=== PATIENT | female | born 1985 | race African-American/Black ===

== ENCOUNTER 2020-07-06 13:16 | Outpatient (CLI) | payer OTHER, SELFPAY ==
[~2020-07-06] VITALS: Ht 172.7 cm; Wt 72.2 kg
[2020-07-06] MEDS ORDERED: PRENTAB9 PO (13:41)
[2020-07-06] MEDS ORDERED: ZOLO50TA PO (13:41)
[2020-07-06 13:44] VITALS: BP 113/62
[2020-07-06] MEDS ORDERED: FLUCONAZOLE 100 MG TAB PO ONE (13:45)
[2020-07-06] MEDS ORDERED: BETAMETHASONE SOLUSPAN 6MG/ML 5ML VIAL (J0702 PER 3MG) IM SCH (16:15)
[2020-07-06] MEDS ORDERED: PENICILLIN G POTASSIUM IV 5 MU in D5W MINI-BAG PLUS 100 ML IV STA (16:22)
[2020-07-06 16:23] VITALS: BP 121/64
--- NOTE | 2020-07-06 16:33 | IPNPDOC ---
Obstetrical Progress Note Date of Service Jul 06, 2020 Subjective 35yo lorna [id number] @33+0 presenting from clinic for prolonged monitoring after spontaneous deceleration on clinic NST and finding of 350/-3 cervical dilation and vaginal candidiasis. Objective Vital Signs Date Time Temp Pulse Resp B/P (MAP) Pulse Ox O2 Delivery O2 Flow Rate FiO2 07/06/20 13:44 99.0 86 18 113/62 (79) Assessment Heart Rate (FHR): 150 Variability: Moderate Accelerations: Positive Decelerations: None (no decels monitored on triage observation) Tocometer Contractions: Yes Frequency: irregular Duration: less than 60 seconds Strength: palpated as mild, resting tone palp/soft Sterile Vaginal Examination Dilation: 3 cm Effacement (%): 50% Station: -3 Cervical Consistency: Soft Cervical Position: Posterior Postion/Presentation: Cephalic presentation Assessment and Plan Age: 35 : 4 Term: 2 Pre-term: 0 Abortions: 1 Livin Status: Reassuring Group B Streptococcus: Positive (by urine) Additional Comments Consulted with Dr. Boyer for plan of care with betamethasone for lung maturity. Dr. Boyer recommended that patient remain on observation for 24 hours for completion of steroids and monitoring of contractions. Discussed plan of care and signs of labor. Pt consented to plan. 12 Betamethasone im ordered q24hr x2 Care transferred to Dr. Boyer at change of shift. SERGE BARBOUR CNM Jul 06, 2020 16:33
[2020-07-06] MEDS ORDERED: SERTRALINE HCL 50 MG TAB PO SCH (17:00)
[2020-07-06 19:11] VITALS: BP 120/70
[2020-07-06] MEDS: PENICILLIN G POTASSIUM IV 2.5 MU in IV 1 EA IV SCH (21:10)
[2020-07-07 00:40] VITALS: BP 117/65
[2020-07-07 00:42] VITALS: BP 117/65
[2020-07-07] MEDS: PENICILLIN G POTASSIUM IV 2.5 MU in IV 1 EA IV SCH ×2 (00:51→05:06)
--- NOTE | 2020-07-07 07:35 | IPNPDOC ---
Text Note Date of Service The patient was seen on 07/07/20. NOTE Went to evaluate Lizeth this morning. She reports feeling well and denies experiencing any contractions. She also denies any bleeding or leakage of fluid. She endorses movement. Chaperoned by Leandro Cervix: unchanged at 3/50/-3 FHR has been Cat I throughout her stay. Plan to discharge home today. She will stop in the office this afternoon and receive her 2nd dose of BTMZ. We discussed strict return precautions. All questions answered. Facundo Boyer DO VS,Ruel, I+O VS, Ruel, I+O Vital Signs Date Time Temp Pulse Resp B/P (MAP) Pulse Ox O2 Delivery O2 Flow Rate FiO2 07/07/20 06:31 17 07/07/20 00:42 82 117/65 (82) 07/07/20 00:40 99.5 I&O- Last 24 Hours up to 6 AM 07/07/20 06:00 Intake Total 100 ml Balance 100 ml FACUNDO BOYER DO Jul 07, 2020 07:35
== END 2020-07-07 08:10 | disposition home or self-care (01) ==
LOC: M LDO 13:16
PROVIDERS: ATTEND Registered Nurse
DX: O26.893 Other specified pregnancy related conditions, third trimester (principal); Z3A.33 33 weeks gestation of pregnancy; B37.3 Candidiasis of vulva and vagina
CPT/HCPCS: 59025; 96372; 96374; G0378; G0463; J0702

== ENCOUNTER 2020-08-14 11:29 | Inpatient (IN) | payer OTHER ==
[2020-08-14] VITALS (7 sets, daily range): BP systolic 114–141; BP diastolic 60–87
[~2020-08-14] VITALS: Ht 172.7 cm; Wt 78.0 kg
[2020-08-14] MEDS: PRENATAL VITAMINS CHEWABLE TABLET PO SCH (09:00)
[~2020-08-14 11:29] MED LIST: PRENTAB9 PO; ZOLO50TA PO
[2020-08-14] MEDS ORDERED: OXYTOCIN DRIP 30 UNITS in IV 1 EA IV SCH (12:20)
[2020-08-14] MEDS ORDERED: IBUPROFEN 800 MG TAB PO PRN (12:30)
[2020-08-14] MEDS ORDERED: BENZOCAINE 20% HEMORRHOIDAL OINTMENT 28GM TUBE TOP PRN (12:30)
--- NOTE | 2020-08-14 12:38 | DNPDOC ---
[facility] Delivery Note Delivery Note DATE OF DELIVERY: 08/14/20 PREDELIVERY DIAGNOSIS: 38-4/7 weeks' gestation and labor. POST DELIVERY DIAGNOSIS: Delivered. PROCEDURE: Spontaneous vaginal delivery [employer]IC: Brandon Christianson ANESTHESIA: none. ESTIMATED BLOOD LOSS: 150 mL. FINDINGS: 7 pound 9 ounce (3420g) female , Score 9/9, no nuchal cord. DELIVERY SUMMARY: Patient is a 35-year-old 3 now para 3003 who was admitted to labor and delivery fully dilated and precipitously delivered within 30 min of arrival. Patient progressed to C/C/+2 and with good maternal effort delivered a viable female infant. The infants head delivered OA and the head was allowed to spontaneously restitute LOBO. No nuchal cord upon delivery of the head.Right anterior shoulder delivered with gentle downward traction followed by posterior shoulder and corpus without difficulty. Normal 3-vessel cord clamped x 2 and cut by FOB after 1min of delayed cord clamping. Spontaneous cry noted. Infant placed on maternal abdomen for [id number]. Cord blood obtained. Placenta delivered spontaneously and inspection of the placenta demonstrated that it was intact. The cord insertion appeared normal. The uterus was cleared of all clots and debris. Fundal massage until firm. 30 units of Pitocin administered per protocol and the patient required no additional uterotonics. Inspection of cervix, perineum, and vaginal wall revealed no tears with good hemostasis. Repeat uterine examination noted uterine tone to be adequate and firm. Mom and infant stayed in L&D in hemodynamic stable condition upon my departure. Sponge, lap and needle count correct x 2. YANETH BROWNE MD Aug 14, 2020 12:29
--- NOTE | 2020-08-14 12:44 | HPEPDOC ---
Obstetrical History & Physical General Date of Admission Aug 14, 2020 at 11:29 History of Present Illness 35 YO AT 38+4 Who presented to L&D fullly dilated and had a precipitous delivery within 30 min of arrival. she is GBS pos noted after she had delivered, RH positive. she had an uncomplicated delivery, see her delivery note for more details. Past Medical History Past Medical History Medical History OCD- takes 50mg zoloft Social History Psychosocial History: Other (OCD) * Smoker: non-smoker Alcohol: Denies Abuse Violence Screening Have you been hit/kicked/slapp: No Have you been sexually assault: No Physical Examination Physical Examination GENERAL: Alert and oriented times three. BREAST: . ABDOMEN: Gravid and non-tender to touch. FETUS: Is vertex DELIVERED Laboratory Data 24H LABS Laboratory Tests 2 08/14/20 11:35: Assessment/Plan Assessment 35 YO AT 38+4 Who presented to L&D fullly dilated and had a precipitous delivery within 30 min of arrival. she is GBS pos noted after she had delivered, RH positive. she had an uncomplicated delivery, see her delivery note for more details. Plan Transfer to [facility] for post op recovery. YANETH BROWNE MD Aug 14, 2020 12:44
[2020-08-14] MEDS ORDERED: LR 1,000 ML IV ONE (13:00)
[2020-08-14] MEDS ORDERED: ZOLO50TA PO (13:18)
[2020-08-14] MEDS ORDERED: FERR325T3 PO (13:19)
[2020-08-14] MEDS ORDERED: PRENTAB9 PO (13:19)
[2020-08-14] MEDS ORDERED: VALA500T5 PO (13:45)
[2020-08-14] MEDS ORDERED: SERTRALINE HCL 50 MG TAB PO ONE (14:00)
[2020-08-14] MEDS: ACETAMINOPHEN 500 MG TAB PO PRN (20:08)
[2020-08-14] MEDS: DOCUSATE SODIUM 100MG CAPSULE PO SCH (21:29)
--- NOTE | 2020-08-15 05:42 | IPNPDOC ---
Progress Note Date of Service: Aug 15, 2020 Progress Note SUBJECT: Lizeth is a 35-year-old 4 now Para 3013 status post uncomplicated spontaneous vaginal delivery at 38-3/7 weeks of a 7 pound 9 ounce (3420g) female , Score 9/9, no nuchal cord, doing well day # 1. She has been ambulating, voiding spontaneously without issue and tolerating regular diet. Breast feeding without issue. Reports lochia is minimal Patient is ambulating well. OBJECTIVE: VITAL SIGNS: Within normal limits, afebrile. Alert and oriented times three. normal work of breathing. Heart rate: Regular rate . Abdomen: Fundus firm at U-2. . ASSESSMENT: Lizeth is a 35-year-old 4 now Para 3013 status post uncomplicated spontaneous vaginal delivery at 38-3/7 weeks of a 7 pound 9 ounce (3420g) female , Score 9/9, no nuchal cord, doing well day # 1. Vitals within normal limits, afebrile, hemodynamically stable with no evidence of infection. PLAN: 1. Discharge to home tomorrow. 2. Tylenol and Motrin for pain. 3. Encourage breast feeding and ambulation. 4. undecided for contraception- discussed risks of close interval . 5. Routine PP visit in 6 weeks in clinic. 6. Discussed return precautions at length. VS, I&O, 24H, Fishbone Vital Signs/I&O Vital Signs Date Time Temp Pulse Resp B/P (MAP) Pulse Ox O2 Delivery O2 Flow Rate FiO2 08/14/20 17:57 99.0 92 18 114/75 (88) 100 I&O- Last 24 Hours up to 6 AM 08/15/20 06:00 Output Total 150 ml Balance -150 ml Laboratory Data 24H LABS Laboratory Tests 2 08/14/20 11:35: Hepatitis B Surface Antigen NEGATIVEL 08/14/20 14:22: Serology Scanned Report Hepatitis B Testing YANETH BROWNE MD Aug 15, 2020 05:42
[2020-08-15 06:17] VITALS: BP 135/72
[2020-08-15 09:08] LABS: HEMATOCRIT 37.8 % (36.0-47.0); HEMOGLOBIN 12.9 g/dl (12.0-15.5); MEAN CORPUSCULAR HEMOGLOBIN 32.6 pg (27.0-33.0); MEAN CORPUSCULAR HGB CONC 34.1 g/dl (32.0-36.5); MEAN CORPUSCULAR VOLUME 95.5 fl (80.0-96.0); PLATELET COUNT, AUTOMATED 219 10^3/uL (150-450); RED BLOOD COUNT 3.96 10^6/uL (4.00-5.40); WHITE BLOOD COUNT 7.4 10^3/uL (4.0-10.0)
[2020-08-15] MEDS: DOCUSATE SODIUM 100MG CAPSULE PO SCH ×2 (09:17→21:04)
[2020-08-15] MEDS: PRENATAL VITAMINS CHEWABLE TABLET PO SCH (09:17)
[2020-08-15] MEDS: SERTRALINE HCL 50 MG TAB PO SCH (09:18)
[2020-08-15 17:40] VITALS: BP 126/68
[2020-08-16 06:00] VITALS: BP 132/75
--- NOTE | 2020-08-16 08:40 | IPNPDOC ---
Progress Note Date of Service: Aug 16, 2020 Day#: 2 Progress Note SUBJECT: Lizeth is a 35yo G3 now P3 s/p doing well day # 2. She has been ambulating, voiding spontaneously without issue and tolerating regular diet. Breast feeding without issue. She notes that her lochia has decreased and is light in nature this morning. Reports pain controlled. OBJECTIVE: VITAL SIGNS: Within normal limits, afebrile. Alert and oriented times three. Abdomen: Fundus firm at U-1. Soft, NTTP. ASSESSMENT: Lizeth is a 35yo G3 now P3 s/p doing well day # 2. Vitals within normal limits, afebrile, hemodynamically stable with no evidence of infection. PLAN: 1. Discharge to home today. 2. Continue current pain mgmt. 3. Encourage breast feeding and ambulation. 4. Encourage regular diet as tolerated. 5. Routine PP visit in 6 weeks in clinic. 6. Discussed return precautions at length VS, I&O, 24H, Fishbone Vital Signs/I&O Vital Signs Date Time Temp Pulse Resp B/P (MAP) Pulse Ox O2 Delivery O2 Flow Rate FiO2 08/16/20 06:00 98.1 79 18 132/75 (94) 98 Room Air ROSALINDA VILLASENOR DO Aug 16, 2020 08:40
[2020-08-16] MEDS: SERTRALINE HCL 50 MG TAB PO SCH (09:08)
[2020-08-16] MEDS: DOCUSATE SODIUM 100MG CAPSULE PO SCH (09:08)
[2020-08-16] MEDS: PRENATAL VITAMINS CHEWABLE TABLET PO SCH (09:08)
[2020-08-16] MEDS: ACETAMINOPHEN 500 MG TAB PO PRN (09:19)
== END 2020-08-16 15:55 | disposition home or self-care (01) | DRG 807 ==
LOC: M LDI 11:29 → MERGE 11:29 → M OBS 16:26
PROVIDERS: ADMIT Obstetrics & Gynecology; ATTEND Obstetrics & Gynecology
PROC: 10E0XZZ Delivery of Products of Conception, External Approach (ICD-10-PCS; principal; 2020-08-14)
DX: O62.3 Precipitate labor (principal); Z37.0 Single live birth; Z3A.38 38 weeks gestation of pregnancy; O99.824 Streptococcus B carrier state complicating childbirth